=== PATIENT | female | born 1975 | race Caucasian/White ===

== ENCOUNTER 2025-04-05 06:30 | Day surgery (SDC) | payer BC, SELFPAY | END 2025-04-05 17:01 | disposition home or self-care (01) | LOC: GI 06:30 | PROVIDERS: ATTENDING PHYSICIAN Internal Medicine Gastroenterology | DX: Z12.11 Encounter for screening for malignant neoplasm of colon (principal); K64.0 First degree hemorrhoids; D12.0 Benign neoplasm of cecum | CPT/HCPCS: 45380; 88305 ==

== ENCOUNTER → 2025-10-08 07:58 | Outpatient (REF) | payer BC, SELFPAY | LOC: RAD 07:58 | PROVIDERS: ATTENDING PHYSICIAN Family Medicine | DX: E07.89 Other specified disorders of thyroid (principal) | CPT/HCPCS: 76536 ==